=== PATIENT | male | born 2000 | race Caucasian/White ===

== ENCOUNTER 2022-01-08 07:48 | Emergency (ER) | payer OTHER | END 2022-01-08 08:37 | disposition home or self-care (01) | LOC: KA.ED 07:48 | DX: J02.0 Streptococcal pharyngitis (principal); F17.210 Nicotine dependence, cigarettes, uncomplicated; Z20.822 Contact with and (suspected) exposure to COVID-19 | CPT/HCPCS: 87430; 99283; U0002 ==